=== PATIENT | female | born 1985 | race African-American/Black ===

== ENCOUNTER 2017-01-09 04:40 | Inpatient (IN) | payer OTHER ==
[~2017-01-09 04:40] MED LIST: ELECTROLYTE-148 SOLN 1,000 ML IV SCH
[2017-01-09 05:29] VITALS: BMI 43.0
[2017-01-09 05:40] LABS: BASOPHIL 0.6 % (0-2.0); EOSINOPHIL 2.5 % (0-4.5); MCHC 32.1 g/dl (32.0-36.0); MEAN CELL VOLUME 71.8 fl (80-96); MEAN PLT VOLUME 9.3 fl (7.5-11.1); NEUTROPHILS 66.2 % (42.8-82.8); PLATELET COUNT 295 K/MM3 (134-434); RDW 16.8 % (11.6-15.6); WHITE BLOOD COUNT 9.9 K/mm3 (4.0-10.0)
[2017-01-09 05:49] LABS: INR 0.96 (0.82-1.09); PROTHROMBIN TIME (PATIENT) 10.5 SEC (9.98-11.88)
[2017-01-09 05:52] LABS: ACTIVATED PTT 24.7 SECONDS (26.9-34.4)
[2017-01-09 06:01] LABS: ANION GAP 8 (8-16); CALCIUM 8.7 mg/dL (8.5-10.1); CO2 22 mmol/L (21-32); CREATININE 0.6 mg/dL (0.55-1.02); GLUCOSE,RANDOM 84 mg/dL (74-106); SGOT/AST 16 U/L (15-37); SGPT/ALT 10 U/L (12-78); URIC ACID 4.4 mg/dL (2.6-7.2)
[2017-01-09 06:38] LABS: URINE APPEARANCE SLCLOUDY; URINE BILIRUBIN NEGATIVE (NEGATIVE); URINE BLOOD 1+ (NEGATIVE); URINE COLOR DKYELLOW; URINE GLUCOSE (UA) NEGATIVE (NEGATIVE); URINE KETONE TRACE (NEGATIVE); URINE LEUK ESTERASE NEGATIVE (NEGATIVE); URINE NITRITE NEGATIVE (NEGATIVE)
[2017-01-09 06:50] LABS: URINE PROTEIN 1+ (NEGATIVE)
[2017-01-09 06:53] LABS: URINE HYALINE CAST 5 /lpf; URINE MUCUS FEW; URINE RBC 20 /hpf (0-3); URINE WBC 7 /hpf (3-5)
[2017-01-09] MEDS ORDERED: BUTORPHANOL TARTRATE 1 MG/ML VIAL IVPUSH ONE ×2 (09:00→13:22)
[2017-01-09] MEDS ORDERED: PROMETHAZINE HCL 25 MG/1 ML VIAL IVPUSH ONE ×2 (09:00→13:22)
--- NOTE | 2017-01-09 11:25 | PN ---
Progress Note (short form) - Note Progress Note: cx 5 cm, 75, vx -2 mr fhr cat 1, irregular contraction, advised pitocin , rba discussed
[2017-01-09] MEDS ORDERED: OXYTOCIN 15 UNITS/ LR 250 ML 250 ML IVPB SCH (11:30)
[2017-01-09] MEDS ORDERED: LABETALOL HCL 200 MG TABLET (FP) PO ONE (12:15)
--- NOTE | 2017-01-09 12:34 | PN ---
Progress Note (short form) - Note Progress Note: cx 8 cm 100 vx 0 , wants pain meds, fhr cat 1
--- NOTE | 2017-01-09 13:16 | HP ---
Past Medical History - Primary Care Physician PCP:: Sterling Velasquez - Admission Chief Complaint: 38 weeks, GDM, rom, labor History of Present Illness: 31 yo 38 weeks gestation , with hx of GDM, on oral hypoglycemic agent c/o rom since 3am today with lowe abdominal pain and cramps, cx 4 cm 75, vx -2 mr , clear fluid , fhr cat 1 irregular contraction., BS 85 History Source: Patient Limitations to Obtaining History: No Limitations - Past Medical History ...: 10 ...Para: 6 ...Term: 5 ...: 1 ...Spon : 3 ...Induced : 0 ...LMP: 04/18/16 ... 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) - Past Surgical History Past Surgical History: Yes: None Hx Myomectomy: No Hx Transabdominal Cerclage: No - Smoking History Smoking history: Never smoked Have you smoked in the past 12 months: No - Alcohol/Substance Use Hx Alcohol Use: No - Social History ADL: Independent History of Recent Travel: No Home Medications - Allergies Allergies/Adverse Reactions: Allergies Allergy/AdvReac Type Severity Reaction Status Date / Time No Known Allergies Allergy Verified 01/09/16 15:48 - Home Medications Home Medications: Ambulatory Orders Vitamins (Sjr) - 1 tab PO DAILY #30 tablet 09/25/11 Ferrous Sulfate 325 mg PO DAILY 01/09/17 Glyburide 2.5 mg PO DAILY 01/09/17 Valacyclovir HCl [Valtrex -] 500 mg PO DAILY 01/09/17 Review of Systems - Review of Systems Constitutional: reports: No Symptoms Eyes: reports: No Symptoms HENT: reports: No Symptoms Neck: reports: No Symptoms Cardiovascular: reports: No Symptoms Respiratory: reports: No Symptoms Gastrointestinal: reports: No Symptoms Genitourinary: reports: No Symptoms Breasts: reports: No Symptoms Reported Musculoskeletal: reports: No Symptoms Integumentary: reports: No Symptoms Neurological: reports: No Symptoms Endocrine: reports: No Symptoms Hematology/Lymphatic: reports: No Symptoms Psychiatric: reports: No Symptoms Physical Exam - Maternity Vital Signs: Vital Signs Temperature 98.4 F 01/09/17 10:00 Pulse Rate 68 01/09/17 12:00 Respiratory Rate 18 01/09/17 12:00 Blood Pressure 210/96 01/09/17 12:00 O2 Sat by Pulse Oximetry (%) Constitutional: Yes: Well Nourished, No Distress, Calm Eyes: Yes: WNL, Conjunctiva Clear, EOM Intact HENT: Yes: WNL, Atraumatic, Normocephalic Neck: Yes: WNL, Supple, Trachea Midline Cardiovascular: Yes: WNL, Regular Rate and Rhythm Breast(s): Yes: WNL - Abdominal Exam/OB Fundal Height: 40 Number of Fetuses: Single Presentation: Vertex Contractions: Yes Regularity: Irregular Intensity: Mod/Strong Monitor Mode: External Heart Rate Location: [facility] Category: I Accelerations: Uniform Decelerations: None - Vaginal Exam/OB Vaginal Bleediing: No Speculum Exam: No Dilatation (cm): 4cm Effacement (%): 75 Amniotic Membrane Status: Ruptured Nitrazine Test: Positive Amniotic Fluid: Yes: Clear Presentation: Vertex/Position Station: -2 - Physical Exam Extremities: Yes: WNL Edema: Yes Edema: LLE: Trace, RLE: Trace Deep Tendon Reflex Grade: Normal +2 - Labs Lab Results: CBC, BMP 01/09/17 05:10 01/09/17 05:10 Hemorrhage Risk Assessment - Risk Factors Medium Risk Factors: Yes: Greater than 4 previous births Risk Score: 1 Risk Level: Medium Risk Problem List - Problems (1) with 38 completed weeks gestation Code(s): Z3A.38 - 38 WEEKS GESTATION OF (2) Chronic hypertension affecting Code(s): O10.919 - UNSP PRE-EXISTING HTN COMP , UNSP TRIMESTER (3) Gestational hypertension Code(s): O13.9 - GESTATIONAL HTN W/O SIGNIFICANT PROTEINURIA, UNSP TRIMESTER Qualifiers: Trimester: third trimester Qualified Code(s): O13.3 - Gestational [ -induced] hypertension without significant proteinuria, third trimester (4) Gestational diabetes Code(s): O24.419 - GESTATIONAL DIABETES MELLITUS IN , UNSP CONTROL Qualifiers: Gestational diabetes mellitus control: oral hypoglycemic-controlled Trimester: third trimester Qualified Code(s): O24.415 - Gestational diabetes mellitus in , controlled by oral hypoglycemic drugs (5) Grand multipara in labor Code(s): O09.40 - SUPERVISION OF W GRAND MULTIPARITY, UNSP TRIMESTER (6) membrane rupture Code(s): [id number] - Assessment/Plan plan admit , fhm, if irregular contraction pitocin stimulation
--- NOTE | 2017-01-09 13:19 | HP ---
Past Medical History - Admission Chief Complaint: Rupture of membrane History of Present Illness: 31 yo @ 38 weeks gestation, EDC 01/18/17, presents c/o rupture of membrane. Upon admission there was gross pooling and she was 3 cm dilated. History Source: Patient Limitations to Obtaining History: No Limitations - Past Medical History ...: 10 ...Para: 6 ...Term: 5 ...: 1 ...Spon : 3 ...Induced : 0 ...LMP: 04/18/16 ... Weeks Gestation by Dates: 38.0 ...EDC by Dates: 01/23/17 ...EDC by Sono: 01/23/17 - Past Surgical History Past Surgical History: Yes: None Hx Myomectomy: No Hx Transabdominal Cerclage: No - Smoking History Smoking history: Never smoked Have you smoked in the past 12 months: No - Alcohol/Substance Use Hx Alcohol Use: No History of Substance Use: reports: None - Social History ADL: Independent History of Recent Travel: No Home Medications - Allergies Allergies/Adverse Reactions: Allergies Allergy/AdvReac Type Severity Reaction Status Date / Time No Known Allergies Allergy Verified 01/09/16 15:48 - Home Medications Home Medications: Ambulatory Orders Vitamins (Sjr) - 1 tab PO DAILY #30 tablet 09/25/11 Ferrous Sulfate 325 mg PO DAILY 01/09/17 Glyburide 2.5 mg PO DAILY 01/09/17 Valacyclovir HCl [Valtrex -] 500 mg PO DAILY 01/09/17 Family Disease History - Family Disease History Family History: Unremarkable Review of Systems - Review of Systems Constitutional: reports: No Symptoms Eyes: reports: No Symptoms HENT: reports: No Symptoms Neck: reports: No Symptoms Cardiovascular: reports: No Symptoms Respiratory: reports: No Symptoms Gastrointestinal: reports: No Symptoms Genitourinary: reports: Other (Leakage of fluid) Breasts: reports: No Symptoms Reported Musculoskeletal: reports: No Symptoms Integumentary: reports: No Symptoms Neurological: reports: No Symptoms Endocrine: reports: No Symptoms Hematology/Lymphatic: reports: No Symptoms Psychiatric: reports: No Symptoms Pain Intensity: 2 Physical Exam - Maternity Vital Signs: Vital Signs Temperature 98.4 F 01/09/17 10:00 Pulse Rate 68 01/09/17 12:00 Respiratory Rate 18 01/09/17 12:00 Blood Pressure 210/96 01/09/17 12:00 O2 Sat by Pulse Oximetry (%) Constitutional: Yes: Well Nourished Eyes: Yes: Conjunctiva Clear HENT: Yes: Atraumatic Neck: Yes: Supple, Trachea Midline Cardiovascular: Yes: Regular Rate and Rhythm Lungs: Clear to auscultation Breast(s): Yes: WNL - Abdominal Exam/OB Number of Fetuses: Single Presentation: Vertex Contractions: Yes - Vaginal Exam/OB Dilatation (cm): 3 Effacement (%): 70 Amniotic Membrane Status: Ruptured Nitrazine Test: Positive Amniotic Fluid: Yes: Clear Presentation: Vertex/Position Station: -3 - Physical Exam Musculoskeletal: Yes: WNL Extremities: Yes: WNL ...Motor Strength: WNL Psychiatric: Yes: Alert, Oriented - Labs Lab Results: CBC, BMP 01/09/17 05:10 01/09/17 05:10 Assessment/Plan Spontaneous rupture of membrane Admit to L&D Anticipate
[2017-01-09] MEDS ORDERED: BENZOCAINE 20% 57 GM BOTTLE TP PRN (13:21)
[2017-01-09] MEDS ORDERED: BISACODYL 10 MG SUPP.RECT RC PRN (13:21)
[2017-01-09] MEDS ORDERED: METHYLERGONOVINE MALEATE 0.2 MG/1 ML AMP IM PRN (13:21)
[2017-01-09] MEDS ORDERED: ACETAMINOPHEN 325 MG TABLET (FP) PO PRN (13:21)
[2017-01-09] MEDS ORDERED: BENZOCAINE 28 GM HEMORRHOIDAL OINTMENT TP PRN (13:21)
[2017-01-09] MEDS ORDERED: WITCH HAZEL 50% (TUCKS) 40 PAD/JAR PAD TP PRN (13:21)
[2017-01-09] MEDS ORDERED: IBUPROFEN 600 MG TABLET (FP) PO PRN (13:21)
[2017-01-09] MEDS ORDERED: diphenhydrAMINE HCL 25 MG CAPSULE (FP) PO PRN (13:24)
[2017-01-09] MEDS ORDERED: OXYTOCIN 20 UNITS in 0.9% NS 1,000 ML IV SCH (16:15)
--- NOTE | 2017-01-09 16:46 | CONSULT ---
Consult - text type - Consultation Consultation Note: Nephrology Consult for Hypertension 31 year old woman with PMhx of Essential Hypertension s/p Vaginal Delivery now with hypertension. Pt was on a combination medication that included a diuretic but stopped at the start of the . Vital Signs Temperature 99.6 F 01/09/17 15:05 Pulse Rate 75 01/09/17 15:05 Respiratory Rate 20 01/09/17 15:05 Blood Pressure 145/86 01/09/17 15:05 O2 Sat by Pulse Oximetry (%) Intake & Output 01/06/17 01/07/17 01/08/17 01/09/17 23:59 23:59 23:59 23:59 Intake Total 1150 Output Total 100 Balance 1050 Weight 220 lb CBC, BMP 01/09/17 05:10 01/09/17 05:10 Current Medications Acetaminophen (Tylenol -) 650 mg PO Q3H PRN PRN Reason: PAIN Benzocaine (Americaine Ointment -) 1 applic TP PRN PRN PRN Reason: PAIN Benzocaine (Americaine 20% [place] -) 1 spray TP PRN PRN PRN Reason: PAIN Bisacodyl (Dulcolax Suppository -) 10 mg RC PRN PRN PRN Reason: CONSTIPATION Diphenhydramine HCl (Benadryl -) 25 mg PO Q6H PRN PRN Reason: FOR ITCHING Ferrous Sulfate (Feosol -) 325 mg PO BID EMILIA Oxytocin/Sodium Chloride (Normal Saline+20 Units Oxytocin -) 1,000 mls @ 125 mls/hr IV ASDIR EMILIA Ibuprofen (Motrin -) 600 mg PO Q4H PRN PRN Reason: PAIN Labetalol HCl (Normodyne -) 200 mg PO Q6H PRN PRN Reason: HYPERTENSION Methylergonovine Maleate (Methergine Injection -) 0.2 mg IM Q4H PRN PRN Reason: EXCESSIVE BLEEDING (L&D) Multivit/Folic Acid/Iron ( Vitamins (Sjr) -) 1 tab PO DAILY EMILIA Senna/Docusate Sodium (Pericolace -) 2 tablet PO HS PRN PRN Reason: CONSTIPATION Witch Destiny/Glycerin (Tucks Pads -) 1 pad TP PRN PRN PRN Reason: PAIN A/P 31 year old woman with hypertension r/o Preelampsia Check Urine studies to quantify proteinuria no LFT or Plt abnormalities to suggest HELLP Continue Labetalol 200mg Q6h PRN avoid nsaids if possible Trend bp closely will likely need to be discharged on antihypertensives given pre-existing history of hypertension Thank you Ramez Smith DO
[2017-01-09] MEDS: LABETALOL HCL 200 MG TABLET (FP) PO PRN (17:02)
[2017-01-09] MEDS: FERROUS SO4 325 MG TABLET (FP) PO SCH (21:50)
[2017-01-10] MEDS: LABETALOL HCL 200 MG TABLET (FP) PO PRN ×3 (01:49→17:44)
--- NOTE | 2017-01-10 06:42 | PN ---
Post Progress Note - Subjective Subjective: no c/o headache , c/o cramps Post Day: 1 Type of Delivery: Vital Signs: Vital Signs Temperature 98.1 F 01/10/17 06:00 Pulse Rate 72 01/10/17 06:00 Respiratory Rate 18 01/10/17 06:00 Blood Pressure 130/61 01/10/17 06:00 O2 Sat by Pulse Oximetry (%) Breast Exam: Yes: Soft, Other (BF ). No: Engorged Uterus: Yes: Fundus Firm, Fundus below umbilicus Lochia: Yes: Rubra Lochia, amount: Moderate Extremities: Yes: Calves non-tender, Edema Perineum: Yes: Intact Activity: Ambulating - Labs Labs: CBC WBC 9.9 K/mm3 (4.0-10.0) 01/09/17 05:10 RBC 4.27 M/mm3 (3.60-5.2) 01/09/17 05:10 Hgb 9.8 GM/dL (10.7-15.3) L D 01/09/17 05:10 Hct 30.7 % (32.4-45.2) L 01/09/17 05:10 MCV 71.8 fl (80-96) L 01/09/17 05:10 MCH 23.0 pg (25.7-33.7) L 01/09/17 05:10 MCHC 32.1 g/dl (32.0-36.0) 01/09/17 05:10 RDW 16.8 % (11.6-15.6) H 01/09/17 05:10 Plt Count 295 K/MM3 (134-434) 01/09/17 05:10 MPV 9.3 fl (7.5-11.1) 01/09/17 05:10 Neutrophils % 66.2 % (42.8-82.8) 01/09/17 05:10 Lymphocytes % 24.3 % (8-40) D 01/09/17 05:10 Monocytes % 6.4 % (3.8-10.2) 01/09/17 05:10 Eosinophils % 2.5 % (0-4.5) 01/09/17 05:10 Basophils % 0.6 % (0-2.0) 01/09/17 05:10 Retic Count 1.58 % (0.5-1.5) H 01/09/17 05:10 Selected Entries 01/09/17 01/09/17 01/09/17 14:00 15:05 22:00 Blood Pressure 163/89 145/86 151/78 01/10/17 01:40 Blood Pressure 152/87 Laboratory Tests 01/09/17 01/09/17 05:40 21:02 POC Glucometer 97 149 Fasting BGM IN aM today 96 Assessment/Plan s/p , CHR HTN on Po Labetalol 200 mg q 6h prn , received twice yesterday BGM , does not require meds for control, need diet adjustment . anemia stable Plan : ct pp care pp cbc pending
[2017-01-10 08:25] LABS: BASOPHIL 0.4 % (0-2.0); EOSINOPHIL 1.5 % (0-4.5); MCH 22.7 pg (25.7-33.7); MCHC 31.4 g/dl (32.0-36.0); MEAN CELL VOLUME 72.3 fl (80-96); MEAN PLT VOLUME 8.9 fl (7.5-11.1); NEUTROPHILS 72.7 % (42.8-82.8); PLATELET COUNT 227 K/MM3 (134-434); RDW 16.4 % (11.6-15.6); WHITE BLOOD COUNT 11.3 K/mm3 (4.0-10.0)
[2017-01-10] MEDS: PRENATAL VITAMINS W/ FOLIC ACID TABLET (FP) PO SCH (09:15)
[2017-01-10] MEDS: FERROUS SO4 325 MG TABLET (FP) PO SCH ×2 (09:15→21:02)
--- NOTE | 2017-01-10 13:02 | PN ---
Progress Note (short form) - Note Progress Note: Renal follow up for hypertension Pt seen and examined at the bedside awake and alert no acute complaints required labetalol overnight no sob, chest pain, dizziness, blurry vision, SR Vital Signs Temperature 98.6 F 01/10/17 08:39 Pulse Rate 63 01/10/17 08:39 Respiratory Rate 01/10/17 08:39 Blood Pressure 142/71 01/10/17 08:39 O2 Sat by Pulse Oximetry (%) Intake & Output 01/07/17 01/08/17 01/09/17 01/10/17 23:59 23:59 23:59 23:59 Intake Total 1525 1500 Output Total 100 Balance 1425 1500 Weight 220 lb Gen: NAD Ext: Trace LE edema CBC, BMP 01/10/17 07:35 01/09/17 05:10 A/P 31 year old woman with hypertension r/o Preelampsia #Preeclampsia Urine studies show UPCR ~1, and UA with 1+ protein BP controlled with Labetalol continue PRN labetalol for now, will likely need antihypertensives on discharge low salt diet avoid nsaids Thank you Ramez Smith DO
[2017-01-10] MEDS ORDERED: SENNOSIDES/DOCUSATE COMBO (SENNA PLUS) TABLET (UD) PO PRN (22:00)
[2017-01-11] MEDS: LABETALOL HCL 200 MG TABLET (FP) PO PRN ×2 (00:03→05:38)
[2017-01-11] MEDS: PRENATAL VITAMINS W/ FOLIC ACID TABLET (FP) PO SCH (09:47)
[2017-01-11] MEDS: FERROUS SO4 325 MG TABLET (FP) PO SCH (09:47)
[2017-01-11] MEDS ORDERED: LABETALOL HCL 100 MG TABLET (FP) PO PRN (11:12)
--- NOTE | 2017-01-11 11:36 | PN ---
Progress Note (short form) - Note Progress Note: Renal follow up for hypertension Pt seen and examined at the bedside no complaints, denies any SR, CP, SOB, Blurry vision BP above 140/90 this am Vital Signs Temperature 98.6 F 01/11/17 09:03 Pulse Rate 74 01/11/17 09:03 Respiratory Rate 20 01/11/17 09:03 Blood Pressure 167/83 01/11/17 09:03 O2 Sat by Pulse Oximetry (%) Intake & Output 01/08/17 01/09/17 01/10/17 01/11/17 23:59 23:59 23:59 23:59 Intake Total 1525 1500 Output Total 100 Balance 1425 1500 Weight 220 lb Gen: NAD Ext: Trace LE edema CBC, BMP 01/10/17 07:35 01/09/17 05:10 A/P 31 year old woman with hypertension r/o Preelampsia #Preeclampsia (high BP, proteinuria) BP remains sligthly above gaol will increase Labetalol to 300mg PRN if BP improves to less then 150/90 this afternoon can be discharged on Labetalol 300mg Q12h Will send Rx to [facility] pharmacy Low salt diet Avoid nsaids will trend BP and proteinuria as an outpatient pt advised not to resume old BP meds Thank you Ramez Smith DO
[2017-01-11 14:04] VITALS: BP 133/83; PULSE 79; TEMP 98.4
--- NOTE | 2017-01-11 15:17 | DS ---
Physical Exam-INSTRUCTOR MODELING Vital Signs: Vital Signs Temperature 98.4 F 01/11/17 14:00 Pulse Rate 79 01/11/17 14:00 Respiratory Rate 18 01/11/17 14:00 Blood Pressure 133/83 01/11/17 14:00 O2 Sat by Pulse Oximetry (%) Constitutional: Yes: Well Nourished Eyes: Yes: Conjunctiva Clear HENT: Yes: Atraumatic Neck: Yes: Supple. No: Tenderness Cardiovascular: Yes: Regular Rate and Rhythm Respiratory: Yes: Regular, CTA Bilaterally Gastrointestinal: Yes: Normal Bowel Sounds External Genitalia: Yes: Normal Vaginal Exam: Yes: Normal Cervix: Yes: Normal Uterus: Yes: Firm ....Post : Yes: Uterus firm, Moderate lochia serosa Breast(s): Yes: WNL Neurological: Yes: Alert, Oriented Psychiatric: Yes: Alert, Oriented Labs: CBC, BMP 01/10/17 07:35 01/09/17 05:10 Delivery - Delivery Vaginal Delivery: Spontaneous Type of Anesthesia: None EBL (cc): 300 Delivery, Single - Stages of Labor Date 1st Stage Initiatied: 01/09/17 Time 1st Stage Initiated: 04:00 Date 2nd Stage Initiated: 01/09/17 Time 2nd Stage Initiated: 12:40 Date of Delivery: 01/09/17 Time of Delivery: 12:49 Time Placenta Delivered: 12:51 - Condition of Infant Electrical Supervisor/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 Present: No Infant Gender: Male Weight: 7 lb 4 oz Total Hours ROM (Hrs/Mins): 9 HOURS 51 MINUTES - 1 Minute Total Score: 9 5 Minutes Total Score: 9 - Feeding Plan Initial Plan: Exclusive throughout hospitalization Discharge Summary Reason For Visit: ADMIT LABOR Current Active Problems Chronic hypertension affecting (Acute) membrane rupture (Acute) Gestational diabetes (Acute) Gestational hypertension (Acute) Grand multipara in labor (Acute) with 38 completed weeks gestation (Acute) Procedures: Principal: Normal vaginal delivery Hospital Course: Patient was seen by News Gathering Technician for - induced Hypertension She was placed on Labetalol and discharged home with antihypertensive. Condition: Good - Instructions Diet, Activity, Other Instructions: Regular diet No douching, no sexual intercourse x 6 weeks. F/U in clinic in 6 weeks Disposition: HOME - Home Medications Comprehensive Discharge Medication List: Ambulatory Orders Vitamins (Sjr) - 1 tab PO DAILY #30 tablet 09/25/11 Ferrous Sulfate 325 mg PO DAILY 01/09/17 Glyburide 2.5 mg PO DAILY 01/09/17 Valacyclovir HCl [Valtrex -] 500 mg PO DAILY 01/09/17
== END 2017-01-11 17:00 | disposition home or self-care (01) | DRG 560 ==
LOC: JLDR 04:40 → J3W 15:19
PROVIDERS: ADMIT Obstetrics & Gynecology; ATTEND Obstetrics & Gynecology
PROC: 10E0XZZ Delivery of Products of Conception, External Approach (ICD-10-PCS; principal; 2017-01-09)
DX: O24.425 Gestational diabetes mellitus in childbirth, controlled by oral hypoglycemic drugs (principal); O10.013 Pre-existing essential hypertension complicating pregnancy, third trimester; O98.313 Other infections with a predominantly sexual mode of transmission complicating pregnancy, third trimester; A60.09 Herpesviral infection of other urogenital tract; O99.02 Anemia complicating childbirth; D64.9 Anemia, unspecified; Z3A.38 38 weeks gestation of pregnancy; Z37.0 Single live birth
CPT/HCPCS: 36415; 59409; 80048; 81003; 81015; 82570; 82977; 83010; 84156; 84450; 84460; 84550; 85025; 85044; 85461; 85610; 85730; 86593; 86850; 86900; 86901

== ENCOUNTER 2018-07-02 11:50 | Inpatient (IN) | payer OTHER ==
--- NOTE | 2018-07-02 12:35 | HP ---
Past Medical History - Primary Care Physician PCP:: Sterling Velasquez - Admission Chief Complaint: 35.5 weeks, IUGR, GDM, multigarvida, AMA. referred for induction History of Present Illness: 33 yo f 0 3 7 , edc by augusto 08/01/18 with hx of GDM, diet controlled, hx of iugr 3 percentile, no growth since last exam , referred by MFM for induction , cx 1 25 ,vx -3, mi, fhr cat 1 History Source: Patient Limitations to Obtaining History: No Limitations - Past Medical History Cardiovascular: Yes: HTN (gestational HTN) ...: 11 ...Para: 7 ...Term: 7 ...: 0 ...Spon : 3 ...Induced : 0 ...Multiple Gestation: 0 ... 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) Endocrine: Yes: Diabetes Mellitus (diet controlled) - Past Surgical History Past Surgical History: Yes: None Hx Myomectomy: No Hx Transabdominal Cerclage: No - Smoking History Smoking history: Never smoked Have you smoked in the past 12 months: No - Alcohol/Substance Use Hx Alcohol Use: No History of Substance Use: reports: None - Social History ADL: Independent History of Recent Travel: No Home Medications - Allergies Allergies/Adverse Reactions: Allergies Allergy/AdvReac Type Severity Reaction Status Date / Time No Known Allergies Allergy Verified 01/09/16 15:48 - Home Medications Home Medications: Ambulatory Orders Vitamins (Sjr) - 1 tab PO DAILY #30 tablet 09/25/11 Ferrous Sulfate 325 mg PO DAILY 01/09/17 Glyburide 2.5 mg PO DAILY 01/09/17 Valacyclovir HCl [Valtrex -] 500 mg PO DAILY 01/09/17 Review of Systems - Review of Systems Constitutional: reports: No Symptoms Eyes: reports: No Symptoms HENT: reports: No Symptoms Neck: reports: No Symptoms Cardiovascular: reports: No Symptoms Respiratory: reports: No Symptoms Gastrointestinal: reports: No Symptoms Genitourinary: reports: No Symptoms Breasts: reports: No Symptoms Reported Musculoskeletal: reports: No Symptoms Integumentary: reports: No Symptoms Neurological: reports: No Symptoms Endocrine: reports: No Symptoms Hematology/Lymphatic: reports: No Symptoms Psychiatric: reports: No Symptoms Physical Exam - Maternity Constitutional: Yes: Well Nourished, No Distress, Calm, Obese Eyes: Yes: WNL, Conjunctiva Clear, EOM Intact HENT: Yes: WNL, Atraumatic, Normocephalic Neck: Yes: WNL, Supple, Trachea Midline Cardiovascular: Yes: WNL, Regular Rate and Rhythm Breast(s): Yes: WNL - Abdominal Exam/OB Fundal Height: 36 Number of Fetuses: Single Presentation: Vertex Contractions: Yes Regularity: Irregular Intensity: Unaware Monitor Mode: External Heart Rate Location: [facility] Category: I Accelerations: Uniform Decelerations: None - Vaginal Exam/OB Vaginal Bleediing: No Speculum Exam: No Dilatation (cm): 1 Effacement (%): 25 Amniotic Membrane Status: Intact Presentation: Vertex/Position Station: -3 - Physical Exam Musculoskeletal: Yes: WNL Extremities: Yes: WNL Edema: Yes Edema: LLE: Trace, RLE: Trace Deep Tendon Reflex Grade: Normal +2 Psychiatric: Yes: Alert Hemorrhage Risk Assessment - Risk Factors Medium Risk Factors: Yes: Greater than 4 previous births Risk Score: 1 Risk Level: Medium Risk Problem List - Problems (1) Chronic hypertension affecting Code(s): O10.919 - UNSP PRE-EXISTING HTN COMP , UNSP TRIMESTER (2) Gestational diabetes Code(s): O24.419 - GESTATIONAL DIABETES MELLITUS IN , UNSP CONTROL Qualifiers: Gestational diabetes mellitus control: diet-controlled Trimester: third trimester Qualified Code(s): O24.410 - Gestational diabetes mellitus in , diet controlled (3) IUGR (intrauterine growth restriction) affecting care of mother Code(s): O36.5990 - MATERN CARE FOR OTH OR SUSP POOR FETL GRTH, UNSP TRI, UNSP Qualifiers: Fetus number: single or unspecified fetus Trimester: third trimester Qualified Code(s): O36.5930 - Maternal care for other known or suspected poor growth, third trimester, not applicable or unspecified (4) Advanced maternal age during Code(s): [id number] - Assessment/Plan plan admit induction of labor discussed , risks associated with induction discussed BGM q 6h FHM monitor BP hx of HSV has no recent out break for more than 1 year, no lesion seen
[2018-07-02] MEDS ORDERED: BUTORPHANOL TARTRATE 1 MG/ML VIAL IVPUSH PRN (12:45)
[2018-07-02] MEDS: LABETALOL HCL 200 MG TABLET (FP) PO PRN (12:45)
[2018-07-02] MEDS ORDERED: PROMETHAZINE HCL 25 MG/1 ML VIAL IVPB ONE (12:45)
[2018-07-02 12:55] LABS: BASO % 0.4 % (0-2.0); EOS % 2.7 % (0-4.5); HEMATOCRIT 32.4 % (32.4-45.2); HEMOGLOBIN 10.8 GM/dL (10.7-15.3); LYMPH % 18.2 % (8-40); MCH 24.7 pg (25.7-33.7); MCHC 33.2 g/dl (32.0-36.0); MEAN CELL VOLUME 74.3 fl (80-96); MEAN PLT VOLUME 8.8 fl (7.5-11.1); MONO % 3.8 % (3.8-10.2); NEUT % 74.9 % (42.8-82.8); PLATELET COUNT 288 K/MM3 (134-434); RBC 4.36 M/mm3 (3.60-5.2); RDW 16.1 % (11.6-15.6); RETICULOCYTES 1.49 % (0.5-1.5); WHITE BLOOD COUNT 9.3 K/mm3 (4.0-10.0)
[2018-07-02 13:06] LABS: INR 0.97 (0.83-1.09); PROTHROMBIN TIME (PATIENT) 11.5 SEC (9.7-13.0)
[2018-07-02 13:09] LABS: ACTIVATED PTT 27.2 SECONDS (25.2-36.5)
[2018-07-02 13:19] LABS: ANION GAP 5 MMOL/L (8-16); BLOOD UREA NITROGEN 5 mg/dL (7-18); CALCIUM 8.7 mg/dL (8.5-10.1); CHLORIDE 108 mmol/L (98-107); CO2 25 mmol/L (21-32); CREATININE 0.5 mg/dL (0.55-1.3); GAMMA GLUTAMYL TRANSPEPTIDASE 21 U/L (5-85); GLUCOSE,RANDOM 90 mg/dL (74-106); POTASSIUM 4.1 mmol/L (3.5-5.1); SGOT/AST 9 U/L (15-37); SGPT/ALT 9 U/L (13-61); SODIUM 138 mmol/L (136-145); URIC ACID 3.9 mg/dL (2.6-7.2)
[2018-07-02 14:00] LABS: URINE APPEARANCE CLEAR; URINE BILIRUBIN NEGATIVE (<2.0 mg/dL); URINE COLOR YELLOW; URINE GLUCOSE (UA) NEGATIVE (NEGATIVE); URINE KETONE 1+ (NEGATIVE); URINE LEUK ESTERASE NEGATIVE (NEGATIVE); URINE NITRITE NEGATIVE (NEGATIVE); URINE PROTEIN NEGATIVE (NEGATIVE)
[2018-07-02 14:01] VITALS: BMI 44.1
[2018-07-02] MEDS ORDERED: DINOPROSTONE 10 MG VAGINAL SUPPOSITORY VG ONE (19:00)
--- NOTE | 2018-07-02 21:55 | PN ---
Progress Note (short form) - Note Progress Note: 7pm cervidil rba discussed cervidil inserted cx 2 cm25 vx -3 mi, fhr cat, no cotraction Problem List - Problems (1) Chronic hypertension affecting Code(s): O10.919 - UNSP PRE-EXISTING HTN COMP , UNSP TRIMESTER (2) Gestational diabetes Code(s): O24.419 - GESTATIONAL DIABETES MELLITUS IN , UNSP CONTROL Qualifiers: Gestational diabetes mellitus control: diet-controlled Trimester: third trimester Qualified Code(s): O24.410 - Gestational diabetes mellitus in , diet controlled (3) IUGR (intrauterine growth restriction) affecting care of mother Code(s): O36.5990 - MATERN CARE FOR OTH OR SUSP POOR FETL GRTH, UNSP TRI, UNSP Qualifiers: Fetus number: single or unspecified fetus Trimester: third trimester Qualified Code(s): O36.5930 - Maternal care for other known or suspected poor growth, third trimester, not applicable or unspecified (4) Advanced maternal age during Code(s): [id number] -
[2018-07-02] MEDS: ELECTROLYTE-148 SOLN 1,000 ML IV SCH (23:45)
[2018-07-03] MEDS: LABETALOL HCL 200 MG TABLET (FP) PO PRN ×3 (01:20→15:53)
[2018-07-03] MEDS ORDERED: AMPICILLIN - 2 GM in SODIUM CHLORIDE 100 ML IVPB ONE (03:00)
[2018-07-03] MEDS ORDERED: AMPICILLIN SODIUM 2 GM VIAL ONE (03:25)
[2018-07-03] MEDS ORDERED: AMPICILLIN SODIUM 1 GM VIAL ONE ×4 (06:34→18:38)
[2018-07-03] MEDS: AMPICILLIN - 1 GM in SODIUM CHLORIDE 100 ML IVPB SCH ×4 (06:45→18:45)
[2018-07-03] MEDS: ELECTROLYTE-148 SOLN 1,000 ML IV SCH (07:34)
[2018-07-03] MEDS ORDERED: OXYTOCIN 30 UNITS in 0.9% NS 30 UNIT/500 ML INFUS.BAG IVPB SCH (09:20)
[2018-07-03] MEDS ORDERED: OXYTOCIN 30 UNITS in 0.9% NS 30 UNIT/500 ML INFUS.BAG IVPB ONE (09:53)
--- NOTE | 2018-07-03 10:49 | PN ---
Progress Note (short form) - Note Progress Note: cx 2 cm ,50 vx -3 mi, FHR cat 1, irregular contraction , will start pit Problem List - Problems (1) Chronic hypertension affecting Code(s): O10.919 - UNSP PRE-EXISTING HTN COMP , UNSP TRIMESTER (2) Gestational diabetes Code(s): O24.419 - GESTATIONAL DIABETES MELLITUS IN , UNSP CONTROL Qualifiers: Gestational diabetes mellitus control: diet-controlled Trimester: third trimester Qualified Code(s): O24.410 - Gestational diabetes mellitus in , diet controlled (3) IUGR (intrauterine growth restriction) affecting care of mother Code(s): O36.5990 - MATERN CARE FOR OTH OR SUSP POOR FETL GRTH, UNSP TRI, UNSP Qualifiers: Fetus number: single or unspecified fetus Trimester: third trimester Qualified Code(s): O36.5930 - Maternal care for other known or suspected poor growth, third trimester, not applicable or unspecified (4) Advanced maternal age during Code(s): [id number] -
[2018-07-03] MEDS ORDERED: BUTORPHANOL TARTRATE 2 MG/ML VIAL IVPB STA (17:45)
[2018-07-03] MEDS ORDERED: BUTORPHANOL TARTRATE 1 MG/ML VIAL ONE ×2 (17:48)
[2018-07-03] MEDS ORDERED: PROMETHAZINE HCL 25 MG/1 ML VIAL ONE (17:48)
--- NOTE | 2018-07-03 19:39 | PN ---
Progress Note (short form) - Note Progress Note: cx 4 cm 70 vx -2 arom, clear , contraction q 2 min , pitocin decrease , scalp electrode applied , LT side, o2, revaluate Problem List - Problems (1) Chronic hypertension affecting Code(s): O10.919 - UNSP PRE-EXISTING HTN COMP , UNSP TRIMESTER (2) Gestational diabetes Code(s): O24.419 - GESTATIONAL DIABETES MELLITUS IN , UNSP CONTROL Qualifiers: Gestational diabetes mellitus control: diet-controlled Trimester: third trimester Qualified Code(s): O24.410 - Gestational diabetes mellitus in , diet controlled (3) IUGR (intrauterine growth restriction) affecting care of mother Code(s): O36.5990 - MATERN CARE FOR OTH OR SUSP POOR FETL GRTH, UNSP TRI, UNSP Qualifiers: Fetus number: single or unspecified fetus Trimester: third trimester Qualified Code(s): O36.5930 - Maternal care for other known or suspected poor growth, third trimester, not applicable or unspecified (4) Advanced maternal age during Code(s): [id number] -
--- NOTE | 2018-07-03 19:53 | PN ---
Progress Note (short form) - Note Progress Note: mild variable decel, pitocin stopped , will revaluate Problem List - Problems (1) Chronic hypertension affecting Code(s): O10.919 - UNSP PRE-EXISTING HTN COMP , UNSP TRIMESTER (2) Gestational diabetes Code(s): O24.419 - GESTATIONAL DIABETES MELLITUS IN , UNSP CONTROL Qualifiers: Gestational diabetes mellitus control: diet-controlled Trimester: third trimester Qualified Code(s): O24.410 - Gestational diabetes mellitus in , diet controlled (3) IUGR (intrauterine growth restriction) affecting care of mother Code(s): O36.5990 - MATERN CARE FOR OTH OR SUSP POOR FETL GRTH, UNSP TRI, UNSP Qualifiers: Fetus number: single or unspecified fetus Trimester: third trimester Qualified Code(s): O36.5930 - Maternal care for other known or suspected poor growth, third trimester, not applicable or unspecified (4) Advanced maternal age during Code(s): [id number] -
[2018-07-03] MEDS ORDERED: ONDANSETRON 4 MG/2 ML VIAL IVPUSH PRN (20:40)
[2018-07-03] MEDS ORDERED: morphine SULFATE/Preservative Free 0.5 MG/ML (1cc Syringe) EP ONE (20:40)
[2018-07-03] MEDS ORDERED: CITRIC ACID/SODIUM CITRATE 30 ML UNIT-DOSE CUP PO ONE (20:45)
--- NOTE | 2018-07-03 20:45 | PN ---
Progress Note (short form) - Note Progress Note: 830 pm cont to have repetative variable decel, FHR cat 2 , cx 5 cm 70 vx -2 mr, clear , c/s discussed , risks explained , wants BTcolleen Shepherd procedure is permenant and not reversiable Problem List - Problems (1) Chronic hypertension affecting Code(s): O10.919 - UNSP PRE-EXISTING HTN COMP , UNSP TRIMESTER (2) Gestational diabetes Code(s): O24.419 - GESTATIONAL DIABETES MELLITUS IN , UNSP CONTROL Qualifiers: Gestational diabetes mellitus control: diet-controlled Trimester: third trimester Qualified Code(s): O24.410 - Gestational diabetes mellitus in , diet controlled (3) IUGR (intrauterine growth restriction) affecting care of mother Code(s): O36.5990 - MATERN CARE FOR OTH OR SUSP POOR FETL GRTH, UNSP TRI, UNSP Qualifiers: Fetus number: single or unspecified fetus Trimester: third trimester Qualified Code(s): O36.5930 - Maternal care for other known or suspected poor growth, third trimester, not applicable or unspecified (4) Advanced maternal age during Code(s): [id number] -
[2018-07-03] MEDS ORDERED: morphine SULFATE/Preservative Free 0.5 MG/ML (1cc Syringe) ONE (20:46)
[2018-07-03] MEDS ORDERED: ceFAZolin SODIUM 1 GM VIAL ONE (20:47)
[2018-07-03] MEDS ORDERED: ELECTROLYTE-148 SOLN 1,000 ML IV SCH (21:00)
[2018-07-03] MEDS ORDERED: ePHEDrine SULFATE 50 MG/1 ML AMPULE ONE (21:05)
[2018-07-03] MEDS ORDERED: OXYTOCIN 10 UNITS/ML VIAL ONE (21:11)
[2018-07-03] MEDS ORDERED: OXYTOCIN 20 UNITS in 0.9% NS 20 UNIT/1,000 ML INFUS.BAG IV ONE ×2 (21:23→23:18)
[2018-07-03 21:35] LABS: VENOUS PH 7.33 (7.31-7.41)
[2018-07-03] MEDS ORDERED: hydrALAZINE HCL 20 MG/ML VIAL ONE (21:46)
[2018-07-03] MEDS ORDERED: MIDAZOLAM HCL 2 MG/2 ML SINGLE DOSE VIAL ONE (21:50)
[2018-07-03] MEDS ORDERED: KETOROLAC TROMETHAMINE 30 MG/1 ML VIAL ONE (22:06)
[2018-07-03] MEDS ORDERED: BENZOCAINE 20% 57 GM BOTTLE TP PRN (22:07)
[2018-07-03] MEDS ORDERED: IBUPROFEN 600 MG TABLET (FP) PO PRN (22:07)
[2018-07-03] MEDS ORDERED: BENZOCAINE 28 GM HEMORRHOIDAL OINTMENT PR PRN (22:07)
[2018-07-03] MEDS ORDERED: diphenhydrAMINE HCL 25 MG CAPSULE (FP) PO PRN (22:07)
[2018-07-03] MEDS ORDERED: oxyCODONE HCL 5 MG TABLET PO PRN (22:07)
[2018-07-03] MEDS ORDERED: METHYLERGONOVINE MALEATE 0.2 MG/1 ML AMP IM PRN (22:07)
[2018-07-03] MEDS ORDERED: IBUPROFEN 800 MG/8 ML IJ IVPB PRN (22:07)
[2018-07-03] MEDS ORDERED: WITCH HAZEL 50% (TUCKS) 40 PAD/JAR PAD TP PRN (22:07)
[2018-07-03] MEDS ORDERED: ACETAMINOPHEN 1000 MG/100 ML VIAL (NON FORMULARY) IVPB PRN (22:09)
[2018-07-03 22:15] LABS: COCAINE, UR NEGATIVE ng/ml (CUTOFF=300); METHADONE, UR NEGATIVE ng/ml (CUTOFF=300); OPIATES, URI NEGATIVE ng/ml (CUTOFF=300); PHENCYCLIDINE,URINE NEGATIVE ng/ml (CUTOFF=25); URINE AMPHETAMINES NEGATIVE ng/ml (CUTOFF=500); URINE BARBITURATES NEGATIVE ng/ml (CUTOFF=200); URINE BENZODIAZEPINES NEGATIVE ng/ml (CUTOFF=200)
[2018-07-03] MEDS ORDERED: DEXTROSE 5%-LACTATED RINGERS 1,000 ML IV SCH (22:15)
[2018-07-03] MEDS ORDERED: OXYTOCIN 20 UNITS in 0.9% NS 20 UNIT/1,000 ML INFUS.BAG IV SCH (22:15)
[2018-07-04] MEDS: LABETALOL HCL 200 MG TABLET (FP) PO PRN ×3 (04:20→22:33)
[2018-07-04] MEDS: CEFAZOLIN 1 GM/D5W 1 GM/50 ML BAG IVPB SCH ×2 (04:43→12:05)
--- NOTE | 2018-07-04 07:32 | OP ---
DATE OF OPERATION: 07/03/2018 PREOPERATIVE DIAGNOSES: at 35.6 weeks' gestation, intrauterine growth restriction, gestational diabetes, Cervidil and Pitocin induction, nonreassuring heart rate. POSTOPERATIVE DIAGNOSES: at 35.6 weeks' gestation, intrauterine growth restriction, gestational diabetes, Cervidil and Pitocin induction, nonreassuring heart rate. PROCEDURE PERFORMED: Primary low-segment transverse section and bilateral tubal ligation. SURGEON: Sterling Velasquez MD REPACK ROOM WORKER: RISA Sierra ANESTHESIA: Spinal. ANESTHESIOLOGIST: Dion Crane M.D. ESTIMATED BLOOD LOSS: 700 mL. FINDINGS: A live baby boy. Cord around the neck and the body x1. Apgars of 9 and 9. DESCRIPTION OF PROCEDURE: The patient was taken to the operating room and had adequate spinal anesthesia. Abdomen and perineum were prepped and draped. A Pfannenstiel abdominal skin incision was made. The abdominal wall was cut layer by layer, until the peritoneum was exposed and incised. Upon entering the abdominal cavity, the lower uterine segment was identified and uterovesical fold of peritoneum established. The bladder was pushed down. Then, with the low blade of the [place] retractor in the pelvis, a low transverse uterine incision was made. This incision was extended laterally. The amniotic sac was entered. Clear fluid. Head delivered from occiput posterior position. Nasopharynx was suctioned. There was a cord around the next x1. Also, there was cord around the body and the hands as well. Then the cord was clamped and cut, and cord blood obtained. Apgars were 9 and 9. The placenta was delivered manually. The uterine cavity was cleaned of all remaining tissue. The uterine incision was closed in 2 layers, the 1st layer with 0 Biosyn continuous suture and the 2nd layer with 0 Biosyn imbricating the 1st layer. The bladder flap was closed with 0 Biosyn. There was a small amount of bleeding at the right uterine incision angle, which was oozing. It was sutured with interrupted sutures of 0 Biosyn, and hemostasis was established. The pelvic cavity was irrigated several times. No active bleeding was seen. Then the right tube was grasped with a [place] clamp. The right tube was doubly tied with 2-0 plain ties. A portion of tube was removed. Then the mesosalpinx was cauterized. The same procedure was repeated for the opposite tube. Visualization of both tubes showed no active bleeding. All the lap, sponge and instrument counts were correct. Then the peritoneum was closed with 0 Biosyn continuous suture. The muscles were brought together with interrupted suture of 0 Biosyn. The fascia was closed with 0 Biosyn continuous suture, the subcutaneous fat with interrupted suture of 0 Biosyn, and the skin was closed with elina. The patient tolerated the procedure well, and left the OR in good condition. Logan [id number]
--- NOTE | 2018-07-04 07:53 | PN ---
Post Progress Note Post Day: 1 Type of Delivery: Primary C/S Vital Signs: Vital Signs Temperature 98.8 F 07/04/18 04:00 Pulse Rate 100 H 07/04/18 04:00 Respiratory Rate 18 07/04/18 06:00 Blood Pressure 143/71 07/04/18 04:00 O2 Sat by Pulse Oximetry (%) 98 07/03/18 23:05 Uterus: Yes: Fundus Firm Incision: Yes: Dressing dry and intact Abdomen/GI: Yes: Abdomen soft Lochia: Yes: Rubra Lochia, amount: Small Extremities: Yes: Calves non-tender Perineum: Yes: Intact - Labs Labs: CBC WBC 9.3 K/mm3 (4.0-10.0) 07/02/18 12:35 RBC 4.36 M/mm3 (3.60-5.2) 07/02/18 12:35 Hgb 10.8 GM/dL (10.7-15.3) 07/02/18 12:35 Hct 32.4 % (32.4-45.2) 07/02/18 12:35 MCV 74.3 fl (80-96) L 07/02/18 12:35 MCH 24.7 pg (25.7-33.7) L 07/02/18 12:35 MCHC 33.2 g/dl (32.0-36.0) 07/02/18 12:35 RDW 16.1 % (11.6-15.6) H 07/02/18 12:35 Plt Count 288 K/MM3 (134-434) 07/02/18 12:35 MPV 8.8 fl (7.5-11.1) 07/02/18 12:35 Absolute Neuts (auto) 7.0 K/mm3 (1.5-8.0) 07/02/18 12:35 Neutrophils % 74.9 % (42.8-82.8) 07/02/18 12:35 Lymphocytes % 18.2 % (8-40) 07/02/18 12:35 Monocytes % 3.8 % (3.8-10.2) 07/02/18 12:35 Eosinophils % 2.7 % (0-4.5) 07/02/18 12:35 Basophils % 0.4 % (0-2.0) 03/12/19 12:35 Nucleated RBC % 0 % (0-0) 07/02/ 12:35 Retic Count 1.49 % (0.5-1.5) 07/02/18 12:35 Haptoglobin 189 mg/dL (34-200) 07/02/ 12:35 Problem List - Problems (1) S/P Code(s): Z98.891 - HISTORY OF UTERINE SCAR FROM PREVIOUS SURGERY Assessment/Plan 33yo s/p PLTCS, POD#1 for NRFHT Rourine PP care OOB, ambulate D/C shrestha AM labs pending Anticipate d/c to home by POD#4 Eduard Murrell MD
[2018-07-04 08:02] LABS: BASO % 0.3 % (0-2.0); EOS % 0.7 % (0-4.5); HEMATOCRIT 24.9 % (32.4-45.2); HEMOGLOBIN 8.2 GM/dL (10.7-15.3); LYMPH % 12.5 % (8-40); MCH 24.3 pg (25.7-33.7); MCHC 33.2 g/dl (32.0-36.0); MEAN CELL VOLUME 73.1 fl (80-96); MEAN PLT VOLUME 8.8 fl (7.5-11.1); MONO % 6.1 % (3.8-10.2); NEUT % 80.4 % (42.8-82.8); PLATELET COUNT 245 K/MM3 (134-434); RDW 16.3 % (11.6-15.6); WHITE BLOOD COUNT 10.2 K/mm3 (4.0-10.0)
--- NOTE | 2018-07-04 09:00 | PN ---
Progress Note (short form) - Note Progress Note: Anesthesia postop note 33 y/o F s/p spinal anesthesia for section, duramorph for postop pain management. POD#1, vss, aaox3, sensory motor intact distally, pain well controlled. No anesthesia complications.
[2018-07-04] MEDS: ENOXAPARIN NA (PORCINE) 40 MG/0.4 ML DISP.SYRIN SQ SCH (09:45)
[2018-07-04] MEDS: ACETAMINOPHEN 325 MG TABLET (FP) PO PRN ×2 (15:43→19:53)
[2018-07-04] MEDS: SIMETHICONE 80 MG TAB.CHEW (FP) PO PRN ×2 (15:46→19:53)
[2018-07-04] MEDS: oxyCODONE HCL 5 MG TABLET PO PRN (19:54)
[2018-07-04] MEDS ORDERED: BISACODYL 10 MG SUPP.RECT PR PRN (22:07)
[2018-07-05] MEDS: SIMETHICONE 80 MG TAB.CHEW (FP) PO PRN ×5 (02:37→22:18)
[2018-07-05] MEDS: oxyCODONE HCL 5 MG TABLET PO PRN ×5 (02:37→22:18)
[2018-07-05] MEDS: ACETAMINOPHEN 325 MG TABLET (FP) PO PRN ×5 (02:38→22:19)
[2018-07-05] MEDS: ENOXAPARIN NA (PORCINE) 40 MG/0.4 ML DISP.SYRIN SQ SCH (09:19)
[2018-07-05] MEDS: LABETALOL HCL 200 MG TABLET (FP) PO PRN ×3 (09:47→23:16)
[2018-07-05] MEDS ORDERED: SENNOSIDES/DOCUSATE COMBO (SENNA PLUS) TABLET (UD) PO PRN (22:00)
[2018-07-06 06:12] VITALS: PULSE 82
--- NOTE | 2018-07-06 06:20 | PN ---
Post Progress Note - Subjective Subjective: Doing well. Pain controlled. Ambulating. Pumping. Naturally upset regarding Utox. Post Day: 3 Type of Delivery: Primary C/S Vital Signs: Vital Signs Temperature 98.3 F 07/06/18 06:00 Pulse Rate 82 07/06/18 06:00 Respiratory Rate 20 07/06/18 06:00 Blood Pressure 139/74 07/06/18 06:00 O2 Sat by Pulse Oximetry (%) 98 07/03/18 23:05 Uterus: Yes: Fundus below umbilicus Incision: Yes: Dressing dry and intact Abdomen/GI: Yes: Abdomen soft Lochia: Yes: Rubra Lochia, amount: Small Extremities: Yes: Calves non-tender Activity: Ambulating - Labs Labs: CBC WBC 10.2 K/mm3 (4.0-10.0) H 07/04/18 06:15 RBC 3.40 M/mm3 (3.60-5.2) L 07/04/18 06:15 Hgb 8.2 GM/dL (10.7-15.3) L 07/04/18 06:15 Hct 24.9 % (32.4-45.2) L D 07/04/18 06:15 MCV 73.1 fl (80-96) L 07/04/18 06:15 MCH 24.3 pg (25.7-33.7) L 07/04/18 06:15 MCHC 33.2 g/dl (32.0-36.0) 07/04/18 06:15 RDW 16.3 % (11.6-15.6) H 07/04/18 06:15 Plt Count 245 K/MM3 (134-434) 07/04/18 06:15 MPV 8.8 fl (7.5-11.1) 07/04/18 06:15 Absolute Neuts (auto) 8.2 K/mm3 (1.5-8.0) H 07/04/18 06:15 Neutrophils % 80.4 % (42.8-82.8) 07/04/18 06:15 Lymphocytes % 12.5 % (8-40) D 07/04/18 06:15 Monocytes % 6.1 % (3.8-10.2) 07/04/18 06:15 Eosinophils % 0.7 % (0-4.5) 07/04/18 06:15 Basophils % 0.3 % (0-2.0) 07/04/18 06:15 Nucleated RBC % 0 % (0-0) 07/04/18 06:15 Retic Count 1.49 % (0.5-1.5) 07/02/18 12:35 Haptoglobin 189 mg/dL (34-200) 07/02/18 12:35 Problem List - Problems (1) S/P Code(s): Z98.891 - HISTORY OF UTERINE SCAR FROM PREVIOUS SURGERY Assessment/Plan 33yo s/p PLTCS, POD#3 for NRFHT Rourine PP care OOB, ambulate BPs reviewed, cont Labetalol; declined switching to Procardia Labs reviewed- anemia, on Iron Utox was positive for MDMA- pt aware. Anticipate d/c to home today per pt report Eduard Murrell MD
--- NOTE | 2018-07-06 06:58 | DS ---
Physical Examination Vital Signs: Vital Signs Temperature 98.3 F 07/06/18 06:00 Pulse Rate 82 07/06/18 06:00 Respiratory Rate 20 07/06/18 06:00 Blood Pressure 139/74 07/06/18 06:00 O2 Sat by Pulse Oximetry (%) 98 07/03/18 23:05 Constitutional: Yes: Well Nourished, No Distress, Calm Eyes: Yes: WNL, Conjunctiva Clear, EOM Intact Cardiovascular: Yes: WNL, Regular Rate and Rhythm Respiratory: Yes: WNL, Regular, CTA Bilaterally Gastrointestinal: Yes: WNL, Normal Bowel Sounds Edema: No Integumentary: Yes: WNL Wound/Incision: Yes: Clean/Dry, Well Approximated, Camron Intact ...Motor Strength: WNL Psychiatric: Yes: WNL Labs: CBC, BMP 07/02/18 12:35 Discharge Summary Reason For Visit: INDUCTION OF LABOR Current Active Problems Advanced maternal age during (Acute) IUGR (intrauterine growth restriction) affecting care of mother (Acute) S/P (Acute) Procedures: Principal: PLTCS, BTL Hospital Course: Patient presented for IOL for IUGR and poor growth. She had a NRFHT with pitocin augmentation and underwent PLTCS with BTL Her postoperative course was unremarkable Her blood pressure was managed with Labetalol 100mg daily A urine drug screen was positive for MDMA, however, the baby's toxicology screen was negative. Social work was involved. She met all postoperative milestones and was discharged home on POD#3 She will follow up on 07/09 for staple removal and blood pressure check. Renetta Murrell MD Condition: Stable - Instructions Diet, Activity, Other Instructions: Regular Diet Referrals: Renetta Murrell MD [Staff Physician] - Disposition: HOME - Home Medications Comprehensive Discharge Medication List: Ambulatory Orders Vitamins (Sjr) - 1 tab PO DAILY #30 tablet 09/25/11 Ferrous Sulfate 325 mg PO DAILY 01/09/17 Ibuprofen 600 mg PO Q6H PRN #30 tablet 07/06/18 Labetalol HCl 100 mg PO ONCE 30 Days #30 tablet 07/06/18 Oxycodone HCl/Acetaminophen [Percocet 5-325 mg Tablet -] 1 - 2 tab PO Q6H PRN # 20 tab MDD 6 07/06/18
[2018-07-06 06:59] LABS: BASO % 0.4 % (0-2.0); EOS % 2.9 % (0-4.5); HEMATOCRIT 22.1 % (32.4-45.2); HEMOGLOBIN 7.2 GM/dL (10.7-15.3); LYMPH % 21.9 % (8-40); MCH 23.9 pg (25.7-33.7); MCHC 32.7 g/dl (32.0-36.0); MEAN CELL VOLUME 73.1 fl (80-96); MEAN PLT VOLUME 8.7 fl (7.5-11.1); MONO % 6.1 % (3.8-10.2); NEUT % 68.7 % (42.8-82.8); PLATELET COUNT 254 K/MM3 (134-434); RBC 3.02 M/mm3 (3.60-5.2); RDW 16.6 % (11.6-15.6); WHITE BLOOD COUNT 9.3 K/mm3 (4.0-10.0)
[2018-07-06] MEDS: oxyCODONE HCL 5 MG TABLET PO PRN (07:29)
[2018-07-06] MEDS: SIMETHICONE 80 MG TAB.CHEW (FP) PO PRN (07:29)
[2018-07-06] MEDS: ACETAMINOPHEN 325 MG TABLET (FP) PO PRN (07:30)
[2018-07-06] MEDS ORDERED: FERROUS SO4 325 MG TABLET (FP) PO SCH (08:00)
[2018-07-06] MEDS: LABETALOL HCL 200 MG TABLET (FP) PO PRN (09:55)
[2018-07-06] MEDS: ENOXAPARIN NA (PORCINE) 40 MG/0.4 ML DISP.SYRIN SQ SCH (09:55)
[2018-07-06] MEDS ORDERED: PRENATAL VITAMINS W/ FOLIC ACID TABLET (FP) PO SCH (10:00)
[2018-07-06 12:16] VITALS: BP 160/78; TEMP 98
--- NOTE | 2018-07-16 16:06 | PATH ---
Surgical Pathology Report Patient Name: FARIDA GARCIA [facility]. Rec. 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 Specimen(s) Received A: PLACENTA B: RIGHT FALLOPIAN TUBE C: LEFT FALLOPIAN TUBE Clinical History - 7 NSVDs, 2 spontaneous abortions History of gestational diabetes 2014, 2016, 2019 diet controlled History of PIH 2017, oligo 2009, grand multi Rh- 35.6 weeks gestation, nonreassuring heart rate, IUGR Final Diagnosis A. PLACENTA, SECTION: 369 G THIRD TRIMESTER PLACENTA WITH TRIVASCULAR UMBILICAL CORD AND UNREMARKABLE PLACENTAL MEMBRANES. B. FALLOPIAN TUBE, RIGHT, PARTIAL EXCISION: FULL LUMINAL PORTION OF UNREMARKABLE FALLOPIAN TUBE. C. FALLOPIAN TUBE, LEFT, PARTIAL EXCISION: FULL LUMINAL PORTION OF UNREMARKABLE FALLOPIAN TUBE. Electronically Signed Cheli Burr M.D. Gross Description A. The specimen is received fresh labeled placenta and is a 369 gram, 15.5 x 12.0 x 2.7 cm. placenta with attached membranes and umbilical cord. The attached membranes are webber, translucent with focal opacities and insert marginally. The umbilical cord measures 20 cm. in length and averages 1 cm. in diameter. The cord inserts eccentrically, 4.5 cm. to the nearest margin. No true knots or strictures are identified. Cut surface of the umbilical cord reveals 3 vessels. The surface is wu-blue with minimal fibrin deposition and appropriate caliber vessels. The maternal surface is red-brown with focal defects. Sectioning reveals red-brown, spongy parenchyma. No lesions are identified. Publishing Specialist sections are submitted in three cassettes as follows: 1- membrane rolls and umbilical cord; 2-3- full thickness sections of placenta. B. Received in formalin labeled "portion of right fallopian tube," is a 1.4 cm in length portion of fallopian tube. No fimbria are present. The outer surface is webber-etienne and smooth. Sectioning reveals an unremarkable lumen. Publishing Specialist sections are submitted in one cassette. C. Received in formalin labeled "portion of left fallopian tube," is a 1.1 cm in length portion of fallopian tube. No fimbria are present. The outer surface is webber-etienne and smooth. Sectioning reveals an unremarkable lumen. Publishing Specialist sections are submitted in one cassette. 07/15/2018 [facility]07/[facility]/2018
== END 2018-07-06 11:45 | disposition home or self-care (01) | DRG 540 ==
LOC: JLDR 11:50 → J3W 07-03 23:40
PROVIDERS: ADMIT Obstetrics & Gynecology; ATTEND Obstetrics & Gynecology
PROC: 3E0P7VZ Introduction of Hormone into Female Reproductive, Via Natural or Artificial Opening (ICD-10-PCS; 2018-07-02)
PROC: 3E033VJ Introduction of Other Hormone into Peripheral Vein, Percutaneous Approach (ICD-10-PCS; 2018-07-02)
PROC: 10D00Z1 Extraction of Products of Conception, Low, Open Approach (ICD-10-PCS; principal; 2018-07-03)
PROC: 0U570ZZ Destruction of Bilateral Fallopian Tubes, Open Approach (ICD-10-PCS; 2018-07-03)
DX: O36.5930 Maternal care for other known or suspected poor fetal growth, third trimester, not applicable or unspecified (principal); O24.410 Gestational diabetes mellitus in pregnancy, diet controlled; O10.013 Pre-existing essential hypertension complicating pregnancy, third trimester; O99.214 Obesity complicating childbirth; E66.9 Obesity, unspecified; O98.32 Other infections with a predominantly sexual mode of transmission complicating childbirth; O99.323 Drug use complicating pregnancy, third trimester; F15.90 Other stimulant use, unspecified, uncomplicated; O76 Abnormality in fetal heart rate and rhythm complicating labor and delivery; A60.09 Herpesviral infection of other urogenital tract; O69.81X0 Labor and delivery complicated by cord around neck, without compression, not applicable or unspecified; O99.02 Anemia complicating childbirth; D64.9 Anemia, unspecified; Z3A.35 35 weeks gestation of pregnancy; Z37.0 Single live birth; Z30.2 Encounter for sterilization
CPT/HCPCS: 36415; 80048; 80307; 81003; 82803; 82962; 82977; 83010; 84450; 84460; 84550; 85025; 85044; 85461; 85610; 85730; 86593; 86850; 86870; 86900; 86901; 86902; 88302-TC; 88307-TC